=== PATIENT | male | born 1960 | race Caucasian/White ===

== ENCOUNTER 2021-07-25 20:25 | Emergency (ER) | payer BC ==
[2021-07-25 21:31] LABS: CHLORIDE,CL 93 mmol/L (98-107); SODIUM,NA 131 mmol/L (136-145)
[2021-07-25 21:33] LABS: ANION GAP 16.7 mmol/L (5-15)
--- NOTE | 2021-07-26 00:12 | EDM.PDOC ---
ED HPI GENERAL MEDICAL PROBLEM - General Chief Complaint: General Stated Complaint: lower extremity swelling Time Seen by Provider: 07/25/21 20:46 Source of Information: Reports: Patient History Limitations: Reports: No Limitations - History of Present Illness INITIAL COMMENTS - FREE TEXT/NARRATIVE: Pt. presents to ER with complaints of increased peripheral edema. Pt. underwent stenting 2 days before coming to ER. He noticed that his feet were swollen and decided to come in to ER. Pt. currently has a DVT in his L lower extremity and is on eliquis and plavix. His DVT was diagnosed in June. He is concerned that he has another blood clot. Pt. has an underlying history of small cell lung carcinoma for which he is on chemo. Angiogram showed 80% stenosis of LAD. Echo showed EF of 55-60% with mild apical septal and apical anterior akinesis. Pt. denies any new extremity discomfort. Denies any chest pain or shortness of breath. No lightheadedness. No fever or chills. No cough or recent illness. 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: Aspirin - Related Data Allergies Allergy/AdvReac Type Severity Reaction Status Date / Time No Known Allergies Allergy Verified 05/26/21 11:05 Home Meds: Home Meds Ascorbic Acid [Vitamin C] 250 mg PO DAILY 05/23/21 [History] Calcium Carbonate [Calcium] 500 mg PO DAILY 05/23/21 [History] Glucosam/Chond/Collagen/Hyalur [Glucosamine Chondroitin] 1 tab PO DAILY 05/23/21 [History] Lactase [Lactaid] 3,000 units PO ASDIRECTED PRN 05/23/21 [History] Lactobacillus 3/Fos/Pantethine [Probiotic & Acidophilus] 1 tab PO TID 05/23/21 [History] Lansoprazole [Prevacid] 15 mg PO DAILY 05/23/21 [History] Magnesium Gluconate [Magonate] 1 tab PO DAILY 05/23/21 [History] Melatonin 5 mg PO BEDTIME 05/23/21 [History] Simvastatin [Zocor] 20 mg PO BEDTIME 05/23/21 [History] Tetrahydrozoline/Polyethyl Gly [Lubricant Redness Reliever Drp] 500 mg EYEBOTH ASDIRECTED PRN 05/23/21 [History] metFORMIN [Glucophage] 500 mg PO BID 05/23/21 [History] Past Medical History Gastrointestinal History: Reports: GERD, Irritable Bowel Syndrome Psychiatric History: Reports: Anxiety, Depression Endocrine/Metabolic History: Reports: Diabetes, Type II Social & Family History - Tobacco Use Tobacco Use Status *Q: Never Tobacco User - Recreational Drug Use Recreational Drug Use: No ED ROS GENERAL - Review of Systems Review Of Systems: See Below Constitutional: Reports: No Symptoms HEENT: Reports: No Symptoms Respiratory: Reports: No Symptoms Cardiovascular: Reports: Edema Endocrine: Reports: No Symptoms GI/Abdominal: Reports: No Symptoms : Reports: No Symptoms Musculoskeletal: Reports: No Symptoms Skin: Reports: No Symptoms Neurological: Reports: No Symptoms Psychiatric: Reports: No Symptoms Hematologic/Lymphatic: Reports: No Symptoms Immunologic: Reports: No Symptoms ED EXAM, GENERAL - Physical Exam Exam: See Below Exam Limited By: No Limitations General Appearance: Alert, WD/WN, No Apparent Distress Throat/Mouth: Normal Inspection, Normal Lips, Normal Teeth, Normal Oropharynx, Normal Voice, No Airway Compromise Head: Atraumatic, Normocephalic Neck: Normal Inspection, Supple, Non-Tender, Full Range of Motion Respiratory/Chest: No Respiratory Distress, Lungs Clear, Normal Breath Sounds, No Accessory Muscle Use, Chest Non-Tender Cardiovascular: Normal Peripheral Pulses, Regular Rate, Rhythm, No JVD, No Murmur, No Rub, Other (1+ pedal edema) Peripheral Pulses: 4+: Radial (L) GI/Abdominal: Soft, Non-Tender, No Distention, No Mass (Male) Exam: Deferred Rectal (Males) Exam: Deferred Back Exam: Normal Inspection, Full Range of Motion Extremities: Normal Inspection, Normal Capillary Refill, Pedal Edema (1+ pedal edema), Other (sumeet sign negative) Neurological: Alert, Oriented, CN II-XII Intact, Normal Cognition, Normal Gait Psychiatric: Normal Affect, Normal Mood Skin Exam: Warm, Dry, Intact, Normal Color, No Rash Lymphatic: No Adenopathy #1 Interpretation Rhythm: NSR [place]: Normal P-Wave: Present QRS: Normal ST-T: Normal QT: Normal Course - Vital Signs Last Recorded V/S: Last Vital Signs Temp 36.6 C 07/25/21 20:46 Pulse 110 H 07/25/21 20:46 Resp 16 07/25/21 20:46 BP 105/70 07/25/21 20:46 Pulse Ox 99 07/25/21 20:46 - Orders/Labs/Meds Labs: Laboratory Tests 07/25/21 07/25/21 07/25/21 Range/Units 20:53 20:53 20:53 WBC 1.0 L* (4.0-10.0) x10^3/uL RBC 3.43 L (4.5-6.0) x10^6/uL Hgb 9.8 L (14.0-18.0) g/dL Hct 28.9 L (40.0-52.0) % MCV 84.3 (78.0-93.0) fL MCH 28.6 (26.0-32.0) pg MCHC 33.9 (32.0-36.0) g/dL RDW Coeff of [place]enan 14.1 (10.0-15.0) % Plt Count 77 L (130-400) x10^3/uL Add Manual Diff Yes Neutrophils % (Manual) 49 L (50-80) % Lymphocytes % (Manual) 20 L (25-50) % Monocytes % (Manual) 29 H (2-11) % Eosinophils % (Manual) 2 (0-4) % Absolute Neutrophils 0.5 L (1.8-7.7) x10^3/uL Lymphocytes # (Manual) 0.2 L (1.0-4.8) x10^3/uL Monocytes # (Manual) 0.3 (0.0-0.8) x10^3/uL Eosinophils # (Manual) 0.0 (0.0-0.5) x10^3/uL Platelet Estimate Decreased L Hypochromasia 1+ slight H PT 11.5 (9.9-12.5) SEC INR 1.0 L (2.0-3.5) D-Dimer, Quantitative 0.99 H (<=0.58) mg/LFEU Sodium 131 L (136-145) mmol/L Potassium 3.7 (3.5-5.1) mmol/L Chloride 93 L (98-107) mmol/L Carbon Dioxide 25 (21-32) mmol/L Anion Gap 16.7 H (5-15) mmol/L BUN 6 L (7-18) mg/dL Creatinine 0.6 L (0.70-1.30) mg/dL Est Cr Clr Drug Dosing TNP Estimated GFR (MDRD) > 60 Glucose 127 H (70-99) mg/dL Calcium 8.6 (8.5-10.1) mg/dL Corrected Calcium 9.8 (8.5-10.1) mg/dL Total Bilirubin 0.5 (0.2-1.0) mg/dL AST 19 (15-37) U/L ALT 21 (16-63) U/L Alkaline Phosphatase 70 (46-116) U/L Troponin I High Sens 201 H* (<=76) ng/L NT-Pro-B Natriuret Pep 297 H (<=125) pg/mL Total Protein 6.1 L (6.4-8.2) g/dL Albumin 2.5 L (3.4-5.0) g/dL Globulin 3.6 Albumin/Globulin Ratio 0.69 07/25/21 Range/Units 23:45 WBC (4.0-10.0) x10^3/uL RBC (4.5-6.0) x10^6/uL Hgb (14.0-18.0) g/dL Hct (40.0-52.0) % MCV (78.0-93.0) fL MCH (26.0-32.0) pg MCHC (32.0-36.0) g/dL RDW Coeff of [place]enan (10.0-15.0) % Plt Count (130-400) x10^3/uL Add Manual Diff Neutrophils % (Manual) (50-80) % Lymphocytes % (Manual) (25-50) % Monocytes % (Manual) (2-11) % Eosinophils % (Manual) (0-4) % Absolute Neutrophils (1.8-7.7) x10^3/uL Lymphocytes # (Manual) (1.0-4.8) x10^3/uL Monocytes # (Manual) (0.0-0.8) x10^3/uL Eosinophils # (Manual) (0.0-0.5) x10^3/uL Platelet Estimate Hypochromasia PT (9.9-12.5) SEC INR (2.0-3.5) D-Dimer, Quantitative (<=0.58) mg/LFEU Sodium (136-145) mmol/L Potassium (3.5-5.1) mmol/L Chloride (98-107) mmol/L Carbon Dioxide (21-32) mmol/L Anion Gap (5-15) mmol/L BUN (7-18) mg/dL Creatinine (0.70-1.30) mg/dL Est Cr Clr Drug Dosing Estimated GFR (MDRD) Glucose (70-99) mg/dL Calcium (8.5-10.1) mg/dL Corrected Calcium (8.5-10.1) mg/dL Total Bilirubin (0.2-1.0) mg/dL AST (15-37) U/L ALT (16-63) U/L Alkaline Phosphatase (46-116) U/L Troponin I High Sens 204 H* (<=76) ng/L NT-Pro-B Natriuret Pep (<=125) pg/mL Total Protein (6.4-8.2) g/dL Albumin (3.4-5.0) g/dL Globulin Albumin/Globulin Ratio Departure - Departure Time of Disposition: 00:00 Disposition: Home, Self-Care 01 Clinical Impression: Peripheral edema - Discharge Information Instructions: Edema, [id number] Referrals: Rai Manrique PA-C [Primary Care Provider] - Forms: ED Department Discharge Additional Instructions: Pt. was discharged. EKG was normal. Troponin was trended, mildly elevated, consistent with recent MO. Ultrasound used to image the vessels of the legs. Normal compressibility noted in both extremities. He is currently on eliquis and plavix and he was advised to remain in the medication, pending formal duplex US. Causes of his edema include third spacing secondary to decreased LV function during MO, hydration during hospitalization, or chemotherapy. Sepsis Event Note (ED) - Evaluation Sepsis Screening Result: No Definite Risk - Problem List Review Problem List Initiated/Reviewed/Updated: Yes
== END 2021-07-26 00:20 | disposition home or self-care (01) ==
LOC: VM.ED 20:25
DX: R60.0 Localized edema (principal); K21.9 Gastro-esophageal reflux disease without esophagitis; E11.9 Type 2 diabetes mellitus without complications; Z79.899 Other long term (current) drug therapy; Z79.84 Long term (current) use of oral hypoglycemic drugs
CPT/HCPCS: 36415; 80053; 83880; 84484; 85025; 85379; 85610; 93005; 93010; 99284; 99284-25

== ENCOUNTER 2021-11-20 09:43 | Day surgery (SDC) | payer BC ==
[~2021-11-20 09:43] MED LIST: Lactated Ringers 1,000 ML IV SCH
[2021-11-20] MEDS ORDERED: fentaNYL 100 MCG/2 ML SDV ONE (11:58)
[2021-11-20] MEDS ORDERED: Propofol 200 MG/20 ML SDV ONE ×2 (11:58→13:16)
[2021-11-20] MEDS ORDERED: Midazolam 1 MG/ML 2 ML SDV ONE (11:58)
== END 2021-11-20 14:22 | disposition home or self-care (01) ==
LOC: VM.SDS 09:43
PROVIDERS: ATTEND Family Medicine
DX: Z12.11 Encounter for screening for malignant neoplasm of colon (principal); D12.8 Benign neoplasm of rectum; K57.30 Diverticulosis of large intestine without perforation or abscess without bleeding; K64.9 Unspecified hemorrhoids; I25.2 Old myocardial infarction; I25.10 Atherosclerotic heart disease of native coronary artery without angina pectoris; E11.9 Type 2 diabetes mellitus without complications; K21.9 Gastro-esophageal reflux disease without esophagitis; Z79.899 Other long term (current) drug therapy; Z79.84 Long term (current) use of oral hypoglycemic drugs; Z88.8 Allergy status to other drugs, medicaments and biological substances
CPT/HCPCS: 00812; 82947; J2250; J2704; J3010; J7120

== ENCOUNTER 2021-12-17 13:45 | Emergency (ER) | payer BC ==
[2021-12-17] MEDS ORDERED: Sodium Chloride 0.9% 10 ML Syringe FLUSH PRN (16:37)
[2021-12-17 17:15] LABS: CHLORIDE,CL 102 mmol/L (98-107); SODIUM,NA 138 mmol/L (136-145)
[2021-12-17 17:18] LABS: ANION GAP 13.9 mmol/L (5-15)
[2021-12-17] MEDS ORDERED: Sodium Chloride 0.9% 1,000 ML IV SCH (18:30)
== END 2021-12-17 19:02 | disposition short-term general hospital (02) ==
LOC: VM.ED 13:45
DX: K92.2 Gastrointestinal hemorrhage, unspecified (principal); D64.9 Anemia, unspecified; E11.9 Type 2 diabetes mellitus without complications; I25.10 Atherosclerotic heart disease of native coronary artery without angina pectoris; I25.2 Old myocardial infarction; Z88.8 Allergy status to other drugs, medicaments and biological substances; Z79.899 Other long term (current) drug therapy
CPT/HCPCS: 80053; 80307; 82274; 83735; 84100; 85025; 85610; 85730; 99283; 99285

== ENCOUNTER 2022-01-05 11:01 | Emergency (ER) | payer BC ==
[2022-01-05] MEDS ORDERED: Sodium Chloride 0.9% 10 ML Syringe FLUSH PRN (11:30)
[2022-01-05 11:59] LABS: CHLORIDE,CL 103 mmol/L (98-107); SODIUM,NA 139 mmol/L (136-145)
[2022-01-05 12:07] LABS: ANION GAP 12.2 mmol/L (5-15)
[2022-01-05] MEDS: Sodium Chloride 0.9% 1,000 ML IV SCH (12:18)
== END 2022-01-05 14:55 | disposition short-term general hospital (02) ==
LOC: VM.ED 11:01
DX: D64.9 Anemia, unspecified (principal); I25.10 Atherosclerotic heart disease of native coronary artery without angina pectoris; E11.9 Type 2 diabetes mellitus without complications; K21.9 Gastro-esophageal reflux disease without esophagitis; Z79.02 Long term (current) use of antithrombotics/antiplatelets; Z88.8 Allergy status to other drugs, medicaments and biological substances; Z79.01 Long term (current) use of anticoagulants; Z79.899 Other long term (current) drug therapy; Z20.822 Contact with and (suspected) exposure to COVID-19
CPT/HCPCS: 36415; 71045; 80053; 83880; 84484; 85025; 93005; 93010; 99284; 99285-25; J7030; U0002

== ENCOUNTER 2022-02-13 16:33 | Inpatient (IN) | payer BC ==
[2022-02-13] MEDS ORDERED: Sodium Chloride 0.9% 10 ML Syringe FLUSH PRN (17:34)
[2022-02-13 18:00] LABS: PTT,PARTIAL THROMBOPLSTIN TIME 28.9 SEC (20.5-30.9)
[2022-02-13 18:06] LABS: CHLORIDE,CL 90 mmol/L (98-107)
[2022-02-13 18:08] LABS: ANION GAP 13.9 mmol/L (5-15); ESTIMATED GFR 97 mL/min (>=60); SODIUM,NA 125 mmol/L (136-145)
[2022-02-13] MEDS ORDERED: cefTRIAXone 2 GM Vial IVPUSH ONE (18:08)
[2022-02-13] MEDS ORDERED: Sodium Chloride 0.9% 1,000 ML IV SCH (18:15)
[2022-02-13 18:27] LABS: CORONAVIRUS COVID-19 NAA NEGATIVE (NEGATIVE); RESPIRATORY SYNCYTIAL VIR NAA NEGATIVE (NEGATIVE)
[2022-02-13] MEDS ORDERED: Azithromycin 500 MG in Sodium Chloride 0.9% 250 ML IV ONE (18:41)
[2022-02-13] MEDS ORDERED: Sulfamethoxazole/Trimethoprim 800-160 MG Tab PO SCH (19:45)
[2022-02-13 21:24] LABS: ANION GAP 12.9 mmol/L (5-15)
[2022-02-13] MEDS: Sodium Chloride 0.9% 1,000 ML IV SCH (21:35)
[2022-02-13] MEDS: Melatonin 3 MG Tab PO SCH (21:45)
[2022-02-13] MEDS: Acetaminophen 325 MG Tab PO PRN (21:46)
[2022-02-14] MEDS: Acetaminophen 325 MG Tab PO PRN ×5 (02:09→21:12)
[2022-02-14] MEDS: Sodium Chloride 0.9% 1,000 ML IV SCH (04:07)
[2022-02-14] MEDS: Pantoprazole 40 MG Tab.CR PO SCH (06:13)
[2022-02-14] MEDS: Rosuvastatin 20 MG Tab PO SCH (08:02)
[2022-02-14] MEDS: Magnesium Oxide 400 MG Tab PO SCH (08:02)
[2022-02-14] MEDS: Ferrous Sulfate 325 MG Tab PO SCH (08:03)
[2022-02-14] MEDS: Clopidogrel 75 MG Tab PO SCH (08:03)
[2022-02-14] MEDS: Lisinopril 10 MG Tab PO SCH (08:03)
[2022-02-14] MEDS: Potassium Chloride 10 MEQ Tab.ER PO SCH (08:03)
[2022-02-14] MEDS: Metoprolol Succinate 50 MG Tab.ER PO SCH (08:05)
[2022-02-14] MEDS ORDERED: predniSONE 20 MG Tab PO SCH (09:00)
[2022-02-14 09:09] LABS: ANION GAP 13.8 mmol/L (5-15)
[2022-02-14] MEDS: Potassium Phosphate,Mb-Db/Sodium Phosphate,Mb-Db Packet PO SCH ×4 (09:57→21:10)
[2022-02-14] MEDS ORDERED: predniSONE 20 MG Tab PO ONE (10:20)
[2022-02-14 14:28] LABS: ANION GAP 12.7 mmol/L (5-15)
[2022-02-14] MEDS ORDERED: Sodium Chloride 0.9% 500 ML IV SCH (14:45)
[2022-02-14] MEDS ORDERED: predniSONE 20 MG Tab ONE (15:23)
[2022-02-14] MEDS ORDERED: Azithromycin 250 MG Tab PO SCH (19:45)
[2022-02-14] MEDS ORDERED: cefTRIAXone 2 GM Vial IVPUSH SCH (19:45)
[2022-02-14 20:26] LABS: ANION GAP 13.1 mmol/L (5-15)
[2022-02-14] MEDS: Melatonin 3 MG Tab PO SCH (21:10)
[2022-02-15] MEDS: Acetaminophen 325 MG Tab PO PRN (04:53)
[2022-02-15] MEDS: Pantoprazole 40 MG Tab.CR PO SCH (07:00)
[2022-02-15 08:06] LABS: ANION GAP 11.1 mmol/L (5-15)
[2022-02-15] MEDS: Potassium Chloride 10 MEQ Tab.ER PO SCH (08:07)
[2022-02-15] MEDS: Magnesium Oxide 400 MG Tab PO SCH (08:07)
[2022-02-15] MEDS: Rosuvastatin 20 MG Tab PO SCH (08:08)
[2022-02-15] MEDS: Clopidogrel 75 MG Tab PO SCH (08:08)
[2022-02-15] MEDS: Potassium Phosphate,Mb-Db/Sodium Phosphate,Mb-Db Packet PO SCH (08:08)
[2022-02-15] MEDS: Ferrous Sulfate 325 MG Tab PO SCH (08:08)
[2022-02-15] MEDS: Metoprolol Succinate 50 MG Tab.ER PO SCH (08:10)
[2022-02-15] MEDS: Lisinopril 10 MG Tab PO SCH (08:10)
[2022-02-15 08:11] VITALS: BP 97/53; PULSE 82
[2022-02-15] MEDS ORDERED: predniSONE 20 MG Tab PO ONE (10:20)
[2022-02-16] MEDS ORDERED: Sulfamethoxazole/Trimethoprim 800-160 MG Tab PO SCH (08:00)
[2022-02-16] MEDS ORDERED: predniSONE 20 MG Tab PO SCH (09:00)
== END 2022-02-15 10:35 | disposition home or self-care (01) | DRG 720 ==
LOC: VM.ED 16:33 → VM.MS 18:42
PROVIDERS: ADMIT Family Medicine; ATTEND Family Medicine
DX: A41.9 Sepsis, unspecified organism (principal); J18.9 Pneumonia, unspecified organism; D59.0 Drug-induced autoimmune hemolytic anemia; E87.1 Hypo-osmolality and hyponatremia; I25.10 Atherosclerotic heart disease of native coronary artery without angina pectoris; F41.9 Anxiety disorder, unspecified; F32.A Depression, unspecified; Z20.822 Contact with and (suspected) exposure to COVID-19; K58.9 Irritable bowel syndrome, unspecified; K21.9 Gastro-esophageal reflux disease without esophagitis; E73.9 Lactose intolerance, unspecified; C34.2 Malignant neoplasm of middle lobe, bronchus or lung; H54.7 Unspecified visual loss; K57.90 Diverticulosis of intestine, part unspecified, without perforation or abscess without bleeding; M54.9 Dorsalgia, unspecified; G89.29 Other chronic pain; E11.9 Type 2 diabetes mellitus without complications; Z79.84 Long term (current) use of oral hypoglycemic drugs; Z79.899 Other long term (current) drug therapy; I25.2 Old myocardial infarction; Z79.52 Long term (current) use of systemic steroids; Z87.891 Personal history of nicotine dependence; Z95.5 Presence of coronary angioplasty implant and graft; Z88.8 Allergy status to other drugs, medicaments and biological substances
CPT/HCPCS: 0241U; 36415; 71045; 80048; 80053; 81001; 82947; 83605; 83735; 84100; 84145; 84484; 85025; 85610; 85730; 86140; 87040; 93005; 96361; 96374; 96375; 99285-25; A9270-GY; J0456; J0696; J7030; J7050; J7512

== ENCOUNTER 2022-02-15 19:11 | Inpatient (IN) | payer BC ==
[2022-02-15] MEDS ORDERED: Sodium Chloride 0.9% 1,000 ML IV SCH (19:30)
[2022-02-15 20:21] LABS: CHLORIDE,CL 100 mmol/L (98-107); PTT,PARTIAL THROMBOPLSTIN TIME 24.8 SEC (20.5-30.9); SODIUM,NA 135 mmol/L (136-145)
[2022-02-15 20:27] LABS: ESTIMATED GFR 105 mL/min (>=60)
[2022-02-15] MEDS ORDERED: cefTRIAXone 2 GM Vial IVPUSH ONE (20:31)
[2022-02-15] MEDS ORDERED: Non-Formulary Medication 1 Each (Melatonin [Melatonin] 5 MG Tablet) PO SCH (21:00)
[2022-02-15] MEDS ORDERED: Sodium Chloride 0.9% 1,000 ML IV ONE (21:00)
[2022-02-15 21:19] LABS: BARBITURATE SCREEN,URINE NEGATIVE (NEGATIVE); BENZODIAZEPINES SCREEN,URINE NEGATIVE (NEGATIVE); BUPRENORPHINE SCREEN,URINE NEGATIVE (NEGATIVE); METHAMPHETAMINE SCREEN, URINE NEGATIVE (NEGATIVE); THC SCREEN,URINE 50 NG/ML POSITIVE (NEGATIVE)
[2022-02-15] MEDS ORDERED: LORazepam 1 MG Tab PO ONE (22:17)
[2022-02-15] MEDS ORDERED: Iopamidol 755 Mg/ML 100 ML Bottle IVPUSH ONE (23:18)
[2022-02-16] MEDS ORDERED: Sodium Chloride 0.9% 1,000 ML IV SCH (00:15)
[2022-02-16] MEDS ORDERED: LORazepam 0.5 MG Tab PO ONE (01:01)
[2022-02-16] MEDS ORDERED: Melatonin 3 MG Tab PO PRN (01:09)
[2022-02-16] MEDS: Pantoprazole 40 MG Tab.CR PO SCH ×2 (05:42→06:09)
[2022-02-16 08:27] LABS: ANION GAP 13.3 mmol/L (5-15)
[2022-02-16] MEDS ORDERED: Clopidogrel 75 MG Tab PO SCH (09:00)
[2022-02-16] MEDS ORDERED: Metoprolol Succinate 50 MG Tab.ER PO SCH (09:00)
[2022-02-16] MEDS ORDERED: Rosuvastatin 20 MG Tab PO SCH (09:00)
[2022-02-16] MEDS ORDERED: Ferrous Sulfate 325 MG Tab PO SCH (09:00)
[2022-02-16] MEDS ORDERED: Sulfamethoxazole/Trimethoprim 800-160 MG Tab PO SCH (09:00)
[2022-02-16] MEDS ORDERED: Acetaminophen 325 MG Tab PO PRN (09:35)
[2022-02-16] MEDS ORDERED: LORazepam 1 MG Tab PO PRN (09:53)
[2022-02-16] MEDS ORDERED: LORazepam 2 MG/ML SDV IV PRN (09:53)
[2022-02-16] MEDS ORDERED: LORazepam 2 MG/ML SDV IVPUSH ONE (09:55)
[2022-02-16] MEDS ORDERED: Flumazenil 0.1 MG/ML 5 ML MDV IVPUSH PRN (09:55)
[2022-02-16] MEDS ORDERED: Folic Acid 1 MG Tab PO SCH (10:15)
[2022-02-16] MEDS ORDERED: Thiamine 200 MG/2 ML MDV IV SCH (10:15)
[2022-02-16] MEDS ORDERED: Amoxicillin/Clavulanate K 875-125 MG Tab PO SCH (10:15)
[2022-02-16] MEDS ORDERED: predniSONE 20 MG Tab PO SCH (10:15)
[2022-02-16] MEDS ORDERED: Ibuprofen 200 MG Tab PO ONE (17:31)
[2022-02-16] MEDS ORDERED: LORazepam 1 MG Tab PO ONE (17:32)
== END 2022-02-16 18:00 | disposition short-term general hospital (02) | DRG 775 ==
LOC: VM.ED 19:11 → VM.MS 22:15
PROVIDERS: ADMIT Family Medicine; ATTEND Family Medicine
DX: F10.231 Alcohol dependence with withdrawal delirium (principal); J18.9 Pneumonia, unspecified organism; F41.9 Anxiety disorder, unspecified; F32.A Depression, unspecified; I25.10 Atherosclerotic heart disease of native coronary artery without angina pectoris; K21.9 Gastro-esophageal reflux disease without esophagitis; Z20.822 Contact with and (suspected) exposure to COVID-19; D61.818 Other pancytopenia; K58.9 Irritable bowel syndrome, unspecified; E73.9 Lactose intolerance, unspecified; C34.2 Malignant neoplasm of middle lobe, bronchus or lung; K57.90 Diverticulosis of intestine, part unspecified, without perforation or abscess without bleeding; M54.9 Dorsalgia, unspecified; G89.29 Other chronic pain; E11.9 Type 2 diabetes mellitus without complications; D64.9 Anemia, unspecified; R44.3 Hallucinations, unspecified; Z88.8 Allergy status to other drugs, medicaments and biological substances; Z79.52 Long term (current) use of systemic steroids; Z79.899 Other long term (current) drug therapy; I25.2 Old myocardial infarction; Z87.891 Personal history of nicotine dependence
CPT/HCPCS: 36415; 70450; 71045; 71275; 80048; 80053; 80305-QW; 80307; 81001; 83605; 83735; 83880; 84100; 84484; 85025; 85379; 85610; 85730; 86140; 87040; 93005; 96361; 96374; 99285-25; A9270-GY; J0696; J2060; J3411; J7030; J7512; Q9967; U0002

== ENCOUNTER 2022-02-19 15:16 | Emergency (ER) | payer BC ==
[2022-02-19] MEDS: Sodium Chloride 0.9% 1,000 ML IV ONE (15:54)
[2022-02-19] MEDS: cefTRIAXone 2 GM Vial IVPUSH ONE (15:56)
[2022-02-19 16:09] LABS: ANION GAP 13.8 mmol/L (5-15); CHLORIDE,CL 95 mmol/L (98-107); SODIUM,NA 130 mmol/L (136-145)
[2022-02-19 16:10] LABS: ESTIMATED GFR 97 mL/min (>=60)
[2022-02-19] MEDS: Acetaminophen 325 MG Tab PO ONE (16:16)
[2022-02-19 16:24] LABS: CORONAVIRUS COVID-19 NAA NEGATIVE (NEGATIVE)
[2022-02-19] MEDS ORDERED: Sodium Chloride 0.9% 1,000 ML IV SCH (17:15)
== END 2022-02-19 18:14 | disposition short-term general hospital (02) ==
LOC: VM.ED 15:16
DX: J18.9 Pneumonia, unspecified organism (principal); I25.2 Old myocardial infarction; I25.10 Atherosclerotic heart disease of native coronary artery without angina pectoris; E11.9 Type 2 diabetes mellitus without complications; K21.9 Gastro-esophageal reflux disease without esophagitis; Z88.8 Allergy status to other drugs, medicaments and biological substances; Z79.899 Other long term (current) drug therapy; Z79.02 Long term (current) use of antithrombotics/antiplatelets; Z79.84 Long term (current) use of oral hypoglycemic drugs; Z87.891 Personal history of nicotine dependence; Z20.822 Contact with and (suspected) exposure to COVID-19
CPT/HCPCS: 0240U; 36415; 71046; 80053; 81001; 83605; 84145; 84484; 85025; 86140; 87040; 96361; 96374; 99284; 99285-25; A9270-GY; J0696; J7030